=== PATIENT | male | born 1960 | race Caucasian/White ===

== ENCOUNTER 2018-10-29 13:33 | Emergency (ER) | payer BC, OTHER ==
[2018-10-29] MEDS ORDERED: Acetaminophen/HYDROcodone 325-10 MG Tab PO ONE (18:45)
[2018-10-29] MEDS ORDERED: methylPREDNISolone Sodium Succinate 125 MG/2 ML SDV IM ONE (18:45)
[2018-10-29] MEDS ORDERED: methylPREDNISolone Sodium Succinate 125 MG/2 ML SDV ONE (18:50)
--- NOTE | 2018-10-29 18:57 | EDM.PDOC ---
ED HPI GENERAL MEDICAL PROBLEM - General Chief Complaint: Back Pain or Injury Stated Complaint: PAIN IN BACK AND SIDE [id number] Time Seen by Provider: 10/29/18 18:40 Source of Information: Reports: Patient History Limitations: Reports: No Limitations - History of Present Illness INITIAL COMMENTS - FREE TEXT/NARRATIVE: This 58 yo male patient reports to the ED due to right lateral back pain. The patient reports he has had some back pain over the past week and has been taking Marion and a muscle relaxer, but has not had any symptom relief. The patient reports several days ago he tripped while pulling a hose at his camper and has had increased pain since the fall. Duration: Day(s):, Constant, Getting Worse Location: Reports: Back (right sided) Severity: Severe Improves with: Reports: None Worsens with: Reports: None Context: Reports: Other Associated Symptoms: Reports: No Other Symptoms Treatments DIABETES NURSE: Reports: NSAIDS Right Abdomen Pain Score (Numeric/FACES): 9 - Related Data Allergies Allergy/AdvReac Type Severity Reaction Status Date / Time amoxicillin Allergy Hives Verified 10/29/18 14:25 celecoxib Allergy Nausea Verified 10/29/18 14:24 gabapentin Allergy Hives Verified 10/29/18 14:26 hydrochlorothiazide Allergy Cough Verified 10/29/18 14:24 iodine Allergy Hives Verified 10/29/18 14:23 oxycodone Allergy Headache Verified 10/29/18 14:26 tramadol Allergy Hives Verified 10/29/18 14:23 triamcinolone Allergy Chest Verified 10/29/18 14:25 Presssure Home Meds: Home Meds ALPRAZolam [Alprazolam] 0.5 mg PO BID 10/29/18 [History] Albuterol Sulfate [Proair Hfa] 3 puff IH TID PRN 10/29/18 [History] Aspirin 81 mg PO DAILY 10/29/18 [History] Cholecalciferol (Vitamin D3) [Vitamin D] 5,000 unit PO DAILY 10/29/18 [History] Cyclobenzaprine [Flexeril] 10 mg PO TID 10/29/18 [History] Enalapril [Vasotec] 10 mg PO DAILY 10/29/18 [History] Fish Oil/Addison-3 Fatty Acids [Fish Oil 1,000 MG] 1,000 mg PO DAILY 10/29/18 [ History] Hydrocodone/Acetaminophen [Hydrocodon-Acetaminophen 5-325] 1 tab PO Q6H [History] Ibuprofen 400 mg PO Q6H 10/29/18 [History] Omeprazole 40 mg PO DAILY 10/29/18 [History] Sertraline HCl [Zoloft] 200 mg PO DAILY 10/29/18 [History] Simvastatin 80 mg PO DAILY 10/29/18 [History] Past Medical History HEENT History: Reports: Impaired Vision Cardiovascular History: Reports: High Cholesterol, Hypertension Respiratory History: Reports: Asthma, COPD Gastrointestinal History: Reports: GERD Genitourinary History: Reports: None Musculoskeletal History: Reports: Neck Pain, Chronic, Other (See Below) Other Musculoskeletal History: neck shoulder surgery x3 and right ankle surgery x 3 Neurological History: Reports: None Psychiatric History: Reports: Anxiety, Depression Endocrine/Metabolic History: Reports: None Hematologic History: Reports: None Immunologic History: Reports: None Oncologic (Cancer) History: Reports: None Dermatologic History: Reports: None - Infectious Disease History Infectious Disease History: Reports: Hepatitis B - Past Surgical History Head Surgeries/Procedures: Reports: None Social & Family History - Family History Family Medical History: Noncontributory - Tobacco Use Smoking Status *Q: Former Smoker Years of Tobacco use: 20 Packs/Tins Daily: 0 Used Tobacco, but Quit: Yes Month/Year Tobacco Last Used: - Caffeine Use Caffeine Use: Reports: Soda - Recreational Drug Use Recreational Drug Use: No ED ROS GENERAL - Review of Systems Review Of Systems: ROS reveals no pertinent complaints other than HPI. ED EXAM,LOWER BACK PAIN/INJURY - Physical Exam Exam: See Below Exam Limited By: No Limitations General Appearance: Alert, WD/WN, Moderate Distress Eye Exam: Bilateral Eye: EOMI, Normal Inspection, PERRL Ears: Normal External Exam, Normal Canal, Hearing Grossly Normal, Normal TMs Nose: Normal Inspection, Normal Mucosa, No Blood Throat/Mouth: Normal Inspection, Normal Lips, Normal Teeth, Normal Gums, Normal Oropharynx, Normal Voice, No Airway Compromise Head: Atraumatic, Normocephalic Neck: Normal Inspection, Supple, Non-Tender, Full Range of Motion Respiratory/Chest: No Respiratory Distress, Lungs Clear, Normal Breath Sounds, No Accessory Muscle Use, Chest Non-Tender Cardiovascular: Normal Peripheral Pulses, Regular Rate, Rhythm, No Edema, No Gallop, No JVD, No Murmur, No Rub GI/Abdominal: Normal Bowel Sounds, Soft, Non-Tender, No Organomegaly, No Distention, No Abnormal Bruit, No Mass (Male) Exam: Deferred Rectal (Males) Exam: Deferred Back Exam: Paraspinal Tenderness (right lower back extending to the right hip) Extremities: Normal Inspection, Normal Range of Motion, Non-Tender, No Pedal Edema, Normal Capillary Refill Neurological: Alert, Normal Mood/Affect, Normal Dorsiflexion, CN II-XII Intact, Normal Plantar Flexion, Normal Gait, Normal Reflexes, No Motor/Sensory Deficits , Oriented x 3 Psychiatric: Normal Affect, Normal Mood Skin Exam: Warm, Dry, Intact, Normal Color, No Rash Lymphatic: No Adenopathy Course - Vital Signs Last Recorded V/S: Last Vital Signs Temp 36.9 C 10/29/18 18:26 Pulse 70 10/29/18 18:26 Resp 16 10/29/18 18:26 BP 177/120 H 10/29/18 18:26 Pulse Ox 98 10/29/18 18:26 - Orders/Labs/Meds Meds: Medications Discontinued Medications Generic Name Dose Route Start Last Admin Trade Name Koffi PRN Reason Stop Dose Admin Hydrocodone Bitart/Acetaminophen 1 tab 10/29/18 18:45 10/29/18 18:57 Marion 325-10 Mg PO 10/29/18 18:46 1 tab ONETIME ONE Administration Methylprednisolone Sodium Succinate 125 mg 10/29/18 18:45 10/29/18 18:57 Solu-Medrol IM 10/29/18 18:46 125 mg ONETIME ONE Administration Methylprednisolone Sodium Succinate Confirm 10/29/18 18:50 10/29/18 18:57 Solu-Medrol Administered 10/29/18 18:51 Not Given Dose 125 mg .ROUTE .STK-MED ONE Departure - Departure Time of Disposition: 18:57 Disposition: Home, Self-Care 01 Condition: Fair Clinical Impression: Right-sided low back pain with right-sided sciatica Qualifiers: Chronicity: acute Qualified Code(s): M54.41 - Lumbago with sciatica, right side - Discharge Information *PRESCRIPTION DRUG MONITORING PROGRAM REVIEWED*: Not Applicable *COPY OF PRESCRIPTION DRUG MONITORING REPORT IN PATIENT PEGGY: Not Applicable Instructions: Sciatica, [id number], Muscle Strain, [id number] Forms: ED Department Discharge Care Plan Goals: The patient was advised of the examination results during the visit. The patient was given an injection of steroids and an oral dose of Marion (10/325) while in the ED. The patient was discharged with a script for Prednisone (20 mg ) #10 to take 2 by mouth daily for 5 days. If the patient has any additional symptoms or concerns, the patient should either return to the emergency department or visit his primary care facility.
== END 2018-10-29 19:13 | disposition home or self-care (01) ==
LOC: DL.ED 13:33
DX: M54.41 Lumbago with sciatica, right side (principal); E78.00 Pure hypercholesterolemia, unspecified; I10 Essential (primary) hypertension; K21.9 Gastro-esophageal reflux disease without esophagitis; F41.9 Anxiety disorder, unspecified; F32.9 Major depressive disorder, single episode, unspecified; Z87.891 Personal history of nicotine dependence; Z79.82 Long term (current) use of aspirin; Z79.899 Other long term (current) drug therapy
CPT/HCPCS: 96372; 99282; A9270; J2930